=== PATIENT | female | born 1980 | race Caucasian/White ===

== ENCOUNTER → 2021-10-17 02:10 | Outpatient (CLI) | payer OTHER, SELFPAY ==
[2021-10-17 21:19] LABS: SARS-CoV-2 RNA PCR Positive
== END ==
PROVIDERS: PCP Family Medicine; Visit Provider Family Medicine
DX: U07.1 COVID-19 (principal); J06.9 Acute upper respiratory infection, unspecified
CPT/HCPCS: C9803; U0003; U0005